=== PATIENT | female | born 1975 | race American Indian/Alaskan Native ===

== ENCOUNTER 2016-07-10 10:54 | Day surgery (SDC) | payer OTHER ==
[~2016-07-10 10:54] MED LIST: Dexamethasone 4 MG/ML 5 ML MDV ONE; HYDROmorphone 1 MG/ML Syringe ONE; Ketorolac 30 MG/ML SDV ONE; Lactated Ringers 1,000 ML IV SCH; Lactated Ringers 1,000 ML ONE; Lidocaine 1% 2 ML SDV ONE; Lidocaine 1%/Sod Bicarbonate in NS 8.4% 1 ML Syringe IV PRN; Midazolam 1 MG/ML 2 ML SDV ONE; Ondansetron 4 MG/2 ML SDV ONE; Propofol 200 MG/20 ML SDV ONE; Rocuronium 50 MG/5 ML Vial ONE; Sodium Chloride 0.9% 10 ML Syringe FLUSH PRN; ceFAZolin 1 GM Vial ONE; fentaNYL 250 MCG/5 ML SDV ONE
--- NOTE | 2016-07-10 12:27 | PCM.PREANE ---
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: stroke/TIA (bells palsy left side) Respiratory: Reports: no symptoms Cardiovascular: Reports: no symptoms, dyspnea on exertion GI: Reports: no symptoms Other: Reports: easy bleeding - PHYSICAL ASSESSMENT HR: 98 O2 Sat by Pulse Oximetry: 97 RR: 16 BP: 134/91 Temp: 36.4 C Vital Signs: Last Vital Signs Temp 36.4 C 07/10/16 11:15 Pulse 98 07/10/16 11:15 Resp 16 07/10/16 11:15 BP 134/91 H 07/10/16 11:15 Pulse Ox 97 07/10/16 11:15 Height: 1.65 m Weight: 107.501 kg NPO Status Date: 07/09/16 NPO Status Time: 20:00 ASA Class: 2 Mental Status: alert & oriented x3 Dentition: Reports: broken tooth/teeth (front top) Thyro-Mental Finger Breadths: 3 Mouth Opening Finger Breadths: 3 ROM/Head Extension: full Respiratory Status: lungs clear to auscultation bilaterally Cardiovascular Status: regular rate & rhythm, normal S1, S2, no murmur, blood pressure WNL - LAB Values: Laboratory Last Values Urine HCG, Qual Negative (NEGATIVE) 07/10/16 11:05 MRSA (PCR) Negative 07/04/16 11:01 - ALLERGIES Allergies/Adverse Reactions: Allergies Allergy/AdvReac Type Severity Reaction Status Date / Time No Known Allergies Allergy Verified 11/26/14 21:08 - ANESTHESIA PLAN Preop Beta Chuck: No Anesthesia Type Planned: general anesthesia - ACKNOWLEDGEMENTS Pt an appropriate candidate for the planned anesthesia: Yes Alternatives and risks of anesthesia discussed w pt/guardian: Yes Pt/Guardian understands and agree with anesthesia plan: Yes PreAnesthesia Questionnaire HEENT History: Reports: Allergic rhinitis Cardiovascular History: Reports: None Respiratory History: Reports: Asthma Gastrointestinal History: Reports: GERD Genitourinary History: Reports: None 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: Musculoskeletal History: Reports: Arthritis Other Musculoskeletal History: arhtirits to left knee and knee surgery Neurological History: Reports: Migraines Psychiatric History: Reports: Addiction, Depression Endocrine/Metabolic History: Reports: None Hematologic History: Reports: Anemia Immunologic History: Reports: None Oncologic (Cancer) History: Reports: None Dermatologic History: Reports: None - Past Surgical History HEENT Surgical History: Reports: None Cardiovascular Surgical History: Reports: None Respiratory Surgical History: Reports: None GI Surgical History: Reports: Cholecystectomy Female Surgical History: Reports: section Endocrine Surgical History: Reports: None Neurological Surgical History: Reports: None Musculoskeletal Surgical History: Reports: Arthroscopic knee Other Musculoskeletal Surgeries/Procedures:: Bilateral knee videoarhtroscopy Dermatological Surgical History: Reports: None - SUBSTANCE USE Smoking Status *Q: Current Some Day Smoker Tobacco Use Within Last Twelve Months: Cigarettes Second Hand Smoke Exposure: Yes Days Per Week of Alcohol Use: 2 Number of Drinks Per Day: 6 Total Drinks Per Week: 12 Recreational Drug Use History: Yes Recreational Drug Type: Reports: Marijuana/Hashish Other Recreational Drug Type: had some last noc Recreational Drug Last Use: 1 week ago - HOME MEDS Home Medications: Home Meds Promethazine [Phenergan] 25 mg PO Q6H PRN #10 tab 11/27/14 [Rx] Aspirin 325 mg PO BID #100 tablet 07/10/16 [Rx] Hydrocodone/Acetaminophen [[place] 5-325 Tablet] 1 - 2 each PO Q6H PRN #20 tablet 07/10/16 [Rx] - CURRENT (IN HOUSE) MEDS Current Meds: Current Medications Lactated Ringer's (Ringers, Lactated) 1,000 mls @ 125 mls/hr IV ASDIRECTED MEDHAT Stop: 07/10/16 18:00 Lidocaine/Sodium Bicarbonate (Buffered Lidocaine 1% In Ns 8.4%) 0.25 ml IV ONETIME PRN PRN Reason: Prior to IV Start Stop: 07/10/16 18:00 Sodium Chloride (Saline Flush) 10 ml FLUSH ASDIRECTED PRN PRN Reason: Keep Vein Open Stop: 07/10/16 18:00 Discontinued Medications Cefazolin Sodium (Ancef) Confirm Administered Dose 2 gm .ROUTE .STK-MED ONE Stop: 07/10/16 06:28 Dexamethasone (Dexamethasone) Confirm Administered Dose 20 mg .ROUTE .STK-MED ONE Stop: 07/10/16 06:28 Fentanyl (Sublimaze) Confirm Administered Dose 250 mcg .ROUTE .STK-MED ONE Stop: 07/10/16 06:29 Hydromorphone HCl (Dilaudid) Confirm Administered Dose 1 mg .ROUTE .ST-MED ONE Stop: 07/10/16 06:28 Lactated Ringer's (Ringers, Lactated) Confirm Administered Dose 1,000 mls @ as directed .ROUTE .STPrecognate-MED ONE Stop: 07/10/16 06:28 Ketorolac Tromethamine (Toradol) Confirm Administered Dose 30 mg .ROUTE .ST- MED ONE Stop: 07/10/16 06:28 Lidocaine HCl (Lidocaine 1%) Confirm Administered Dose 6 ml .ROUTE .ST-MED ONE Stop: 07/10/16 06:28 Midazolam HCl (Versed 1 Mg/Ml) Confirm Administered Dose 2 mg .ROUTE .Precognate-MED ONE Stop: 07/10/16 06:28 Ondansetron HCl (Zofran) Confirm Administered Dose 4 mg .ROUTE .STPrecognate-MED ONE Stop: 07/10/16 06:28 Propofol (Diprivan 20 Ml) Confirm Administered Dose 200 mg .ROUTE .STPrecognate-MED ONE Stop: 07/10/16 06:28 Rocuronium [place] (Zemuron) Confirm Administered Dose 50 mg .ROUTE .Pharmaca-MED ONE Stop: 07/10/16 06:28
[2016-07-10] MEDS ORDERED: Scopolamine 1.5 MG Transdermal Patch TRDERM PRN (12:32)
[2016-07-10] MEDS ORDERED: Scopolamine 1.5 MG Transdermal Patch TOP ONE (12:32)
[2016-07-10] MEDS ORDERED: Bupivacaine 0.25% 30 ML SDV ONE (12:55)
[2016-07-10] MEDS ORDERED: EPINEPHrine 1:1000 1 MG/ML 30 ML MDV ONE (12:55)
[2016-07-10] MEDS ORDERED: Triamcinolone Acetonide 40 MG/ML 1 ML MDV ONE (12:55)
[2016-07-10] MEDS ORDERED: Succinylcholine/Normal Saline 100 MG/5 ML Syringe ONE (14:31)
[2016-07-10] MEDS ORDERED: Lidocaine 1% 2 ML SDV ONE ×3 (14:31)
[2016-07-10] MEDS ORDERED: diphenhydrAMINE 50 MG/ML SDV ONE (14:32)
[2016-07-10] MEDS ORDERED: ePHEDrine/Normal Saline 25 MG/5 ML Syringe ONE (15:26)
--- NOTE | 2016-07-10 15:40 | PCM.POSTAN ---
POST ANESTHESIA ASSESSMENT - MENTAL STATUS Mental Status: alert, oriented - VITAL SIGNS Pulse Rate: 103 SaO2: 92 Resp Rate: 20 Blood Pressure: 114/71 Temperature: 37.7 C - RESPIRATORY Respiratory Status: respiratory rate WNL, airway patent, O2 saturation stable - CARDIOVASCULAR CV Status: pulse rate WNL, blood pressure stable - GASTROINTESTINAL GI Status: no symptoms - PAIN Pain Score: 0 - POST OP HYDRATION Hydration Status: adequate & stable - OBSERVATIONS Free Text/Narrative:: no anesthesia complications noted
[2016-07-10] MEDS: fentaNYL 100 MCG/2 ML SDV IVPUSH PRN ×2 (16:10→16:20)
[2016-07-10] MEDS ORDERED: Acetaminophen/HYDROcodone 325-5 MG Tab PO ONE (17:10)
[2016-07-10 17:52] VITALS: BP 118/74
--- NOTE | 2016-07-17 08:15 | PCM.OPNOTE ---
- General Post-Op/Procedure Note Date of Surgery/Procedure: 07/10/16 Operative Procedure(s): right knee arthroscoy with partial medial meniscectomy with chondroplasty and bilateral knee steroid injections Pre Op Diagnosis: right knee medial meniscus tear with bilateral knee pain Post-Op Diagnosis: Same Anesthesia Technique: General LMA, Local Primary Surgeon: Calin Mccall Anesthesia Provider: Yazan Ji Build Engineer: Iraida Person in mLs: 5 Complications: None Condition: Good
--- NOTE | 2016-07-17 09:29 | OR ---
DATE OF OPERATION: 07/10/2016 SURGEON: Calin Mccall MD OPERATION PERFORMED: Right knee arthroscopy with partial medial meniscectomy with chondroplasty medial femoral condyle, and bilateral knee steroid injection. 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 ANESTHESIA: General LMA with local. ANESTHESIA PROVIDER: Yazan Ji CRNA. EXTRACTOR AND WRINGER OPERATOR: Iraida Person PA-C ESTIMATED BLOOD LOSS: Less than 5 mL. COMPLICATIONS: None. CONDITION: Stable. DESCRIPTION OF PROCEDURE: The patient was identified in the preop holding area. Proper site was marked and identified by the surgeon. The patient was taken back to the OR after adequate anesthesia, the patient's left lower extremity was placed in a well leg king. Right lower extremity was placed in a C-clamp king after a nonsterile tourniquet was applied. Right lower extremity was then sterilely prepped and draped in usual sterile fashion. OR time-out was performed. The patient received 2 g IV Ancef. Right lower extremity was then exsanguinated. Tourniquet was then insufflated to 300 mmHg. Standard anterolateral portal was created. Scope trocar was introduced. There was noted to be grade-1/2 chondromalacia of the patella. No loose foreign bodies noted in the medial lateral gutter. Attention was turned to the medial compartment anterior medial portal was created. The probe was introduced. There was found to be a posterior medial meniscus tear degenerative in nature that was irreparable. At this time, a partial medial meniscectomy of the posterior 3rd was done, back to a stable rim. At this time, the patient also had a chondroplasty of the medial femoral condyle which had grade 2/3 chondromalacia. ACL was found to be partially torn in the notch. Lateral compartment showed no signs of chondromalacia or meniscus tear. At this time, excess saline was drained from the knee. Steroid injection was then completed to the right knee and left knee and then had a steroid injection after the dressing was put on the right knee. The patient tolerated the procedure well and was sent to PACU in a stable condition. MMODAL /[id number] GODFREY
== END 2016-07-10 17:45 | disposition home or self-care (01) ==
LOC: JD.SDS 10:54
PROVIDERS: ATTEND Orthopaedic Surgery
DX: M23.221 Derangement of posterior horn of medial meniscus due to old tear or injury, right knee (principal); M94.261 Chondromalacia, right knee; J45.909 Unspecified asthma, uncomplicated; K21.9 Gastro-esophageal reflux disease without esophagitis; F10.10 Alcohol abuse, uncomplicated; J30.81 Allergic rhinitis due to animal (cat) (dog) hair and dander; Z98.890 Other specified postprocedural states; Z78.9 Other specified health status; F17.210 Nicotine dependence, cigarettes, uncomplicated; F19.90 Other psychoactive substance use, unspecified, uncomplicated; F32.9 Major depressive disorder, single episode, unspecified
CPT/HCPCS: 20610; 29881; 81025; 87641; A9270; J0171; J0690; J1100; J1170; J2250; J2405; J3010; J3301; J7050; J7120; 01400; J0330; J1200; J1885; J2704; J3490

== ENCOUNTER 2019-01-26 14:51 | Emergency (ER) | payer OTHER ==
[2019-01-26 15:16] VITALS: BP 136/86; PULSE 93
[2019-01-26] MEDS ORDERED: HYDROmorphone 0.5 MG/0.5 ML Syringe IVPUSH ONE (15:39)
[2019-01-26] MEDS ORDERED: Ondansetron 4 MG/2 ML SDV IVPUSH ONE (15:39)
[2019-01-26] MEDS ORDERED: Sodium Chloride 0.9% 1,000 ML IV SCH (15:45)
[2019-01-26] MEDS: Sodium Chloride 0.9% 10 ML Syringe FLUSH PRN ×2 (16:31→18:07)
[2019-01-26] MEDS ORDERED: Diatrizoate Meglumine/Diatrizoate Sodium 37% 120 ML Bottle PO ONE (16:49)
[2019-01-26] MEDS ORDERED: Iopamidol 612 MG/ML 100 ML Bottle IVPUSH ONE (16:49)
[2019-01-26] MEDS ORDERED: Metoclopramide 10 MG/2 ML SDV IVPUSH ONE (18:29)
--- NOTE | 2019-01-26 18:59 | CT ---
CT abdomen and pelvis Technique: Multiple axial sections were obtained from above the dome of the diaphragm inferiorly through the pubic symphysis. Intravenous and oral contrast has been given. Delayed images were obtained through the bladder. Comparison: No prior CT abdomen or pelvis exam is available. Findings: Visualized portions of both lung bases show nothing acute. Liver contains no focal abnormality. Spleen appears within normal limits. Adrenal glands show no nodule. Surgical clips are seen from prior cholecystectomy. Pancreas is within normal limits. Kidneys show symmetric contrast enhancement without hydronephrosis or mass. Several small nonobstructing calculi are seen within both kidneys. Delayed images shows contrast within the distal ureters and bladder with no evidence of ureteral obstruction. Aorta shows no aneurysm. No retroperitoneal adenopathy is seen. No mesenteric abnormalities are seen. Appendix is seen which is normal in size. No pelvic mass or adenopathy is seen. No free fluid or inflammatory change is seen within the abdomen or pelvis. Bone window settings were reviewed which shows no acute osseous finding. Impression: 1. Findings as noted above. Nothing acute is identified. Diagnostic code #2
--- NOTE | 2019-01-26 19:11 | EDM.PDOC ---
ED HPI GENERAL MEDICAL PROBLEM - General Chief Complaint: Abdominal Pain Stated Complaint: RIGHT SIDE PAIN Time Seen by Provider: 01/26/19 15:06 Source of Information: Reports: Patient, RN Notes Reviewed - History of Present Illness INITIAL COMMENTS - FREE TEXT/NARRATIVE: 43-year-old female has been sent here from [facility] clinic for evaluation of abdominal pain. This started about 4 days ago. The pain has been worsening over the past couple of days. There has been some nausea and vomiting and also frequent diarrhea. Pain has been localizing to the right lower abdomen over the past 1-2 days. She does have history of prior cholecystectomy but still does have her appendix. No definite fever. She's had no appetite, there has been difficulty eating for the last 2 or 3 days. Treatments MANAGER CLIENT SUPPORT: Reports: Other (see below) Other Treatments MANAGER CLIENT SUPPORT: motrin 800 mg; amoxicillin for tooth Right Lower Abdomen Pain Score (Numeric/FACES): 7 - Related Data Allergies Allergy/AdvReac Type Severity Reaction Status Date / Time naproxen Allergy Swelling Verified 01/26/19 15:06 Home Meds: Home Meds Albuterol Sulfate [Proventil Hfa] 2 puff INH Q4H PRN 01/26/19 [History] Amoxicillin 500 mg PO BID 01/26/19 [History] Cholecalciferol (Vitamin D3) [Vitamin D3] 5,000 unit PO DAILY 01/26/19 [History] Ciprofloxacin HCl [Cipro] 500 mg PO BID #7 tablet 01/26/19 [Rx] Cyanocobalamin (Vitamin B-12) [Vitamin B-12] 1,000 mcg PO DAILY 01/26/19 [ History] Escitalopram [Lexapro] 20 mg PO DAILY 01/26/19 [History] Fluconazole 150 mg PO DAILY 01/26/19 [History] Fluticasone Propionate [Flonase Allergy Relief] 1 spray INH DAILY 01/26/19 [ History] Ibuprofen [Motrin] 800 mg PO Q6H PRN 01/26/19 [History] Ondansetron [Zofran ODT] 4 mg PO Q8HR PRN #7 tab.dis 01/26/19 [Rx] Permethrin [Elimite] 1 applic TOP ASDIRECTED 01/26/19 [History] Ranitidine [Zantac] 150 mg PO BID 01/26/19 [History] Past Medical History HEENT History: Reports: Allergic Rhinitis Cardiovascular History: Reports: None Respiratory History: Reports: Asthma Gastrointestinal History: Reports: GERD Genitourinary History: Reports: None PRACTICE ASSISTANT History: Reports: Musculoskeletal History: Reports: Arthritis Other Musculoskeletal History: arhtirits to left knee and knee surgery Neurological History: Reports: Migraines Psychiatric History: Reports: Addiction, Depression Endocrine/Metabolic History: Reports: None Hematologic History: Reports: Anemia Immunologic History: Reports: None Oncologic (Cancer) History: Reports: None Dermatologic History: Reports: None - Past Surgical History Cardiovascular Surgical History: Reports: None Respiratory Surgical History: Reports: None GI Surgical History: Reports: Cholecystectomy Female Surgical History: Reports: Section Endocrine Surgical History: Reports: None Neurological Surgical History: Reports: None Musculoskeletal Surgical History: Reports: Arthroscopic Knee Dermatological Surgical History: Reports: None Social & Family History - Tobacco Use Smoking Status *Q: Current Every Day Smoker Years of Tobacco use: 25 Packs/Tins Daily: 0.1 - Caffeine Use Caffeine Use: Reports: Tea - Recreational Drug Use Recreational Drug Type: Reports: Marijuana/Hashish ED ROS GENERAL - Review of Systems Review Of Systems: See Below Constitutional: Reports: Chills. Denies: Fever HEENT: Reports: No Symptoms Respiratory: Denies: Shortness of Breath Cardiovascular: Denies: Chest Pain GI/Abdominal: Reports: Abdominal Pain, Diarrhea (Patient is also at frequent watery diarrhea for the past 4 days), Nausea, Vomiting ED EXAM, GI/ABD - Physical Exam Exam: See Below General Appearance: Alert, Mild Distress Eyes: Bilateral: Normal Appearance Throat/Mouth: Normal Inspection, Normal Oropharynx Head: Atraumatic Neck: Supple Respiratory/Chest: No Respiratory Distress, Lungs Clear, Normal Breath Sounds Cardiovascular: Regular Rate, Rhythm GI/Abdominal Exam: Rebound (mild), Tender (mild diffuse tendernes, more severe moderate tenderness RLQ). No: Guarding Extremities: Normal Inspection, Normal Range of Motion Neurological: Alert, Oriented, No Motor/Sensory Deficits Skin Exam: Warm, Dry, Normal Color Course - Vital Signs Last Recorded V/S: Last Vital Signs Temp 97.9 F 01/26/19 15:13 Pulse 93 01/26/19 15:13 Resp 20 01/26/19 15:13 BP 136/86 01/26/19 15:13 Pulse Ox 98 01/26/19 15:13 - Orders/Labs/Meds Orders: Active Orders 24 hr Category Date Time Status Peripheral IV Care [RC] . DIRECTED Care 01/26/19 15:31 Active Peripheral IV Insertion Adult [OM.PC] Stat Oth 01/26/19 15:30 Ordered Labs: Laboratory Tests 01/26/19 01/26/19 01/26/19 Range/Units 15:45 15:45 15:45 WBC 8.19 (3.98-10.04) K/mm3 RBC 4.73 (3.98-5.22) M/mm3 Hgb 14.8 (11.2-15.7) gm/dl Hct 44.4 (34.1-44.9) % MCV 93.9 (79.4-94.8) fl MCH 31.3 (25.6-32.2) pg MCHC 33.3 (32.2-35.5) g/dl RDW Std Deviation 45.0 (36.4-46.3) fL Plt Count 328 (182-369) K/mm3 MPV 8.5 L (9.4-12.3) fl Neutrophils % (Manual) 75 H (40-60) % Band Neutrophils % 1 (0-10) % Lymphocytes % (Manual) 18 L (20-40) % Atypical Lymphs % 0 % Monocytes % (Manual) 6 (2-10) % Eosinophils % (Manual) 0 L (0.7-5.8) % Basophils % (Manual) 0 L (0.1-1.2) Platelet Estimate Adequate RBC Morph Comment Normal C-Reactive Protein 1.5 H* (<1.0) mg/dL HCG, Qual Negative (NEGATIVE) Meds: Medications Discontinued Medications Generic Name Dose Route Start Last Admin Trade Name Freq PRN Reason Stop Dose Admin Diatrizoate Meglum/Diatrizoate Sod 60 ml 01/26/19 16:49 01/26/19 18:07 Gastrografin 37% PO 01/26/19 16:50 60 ml ONETIME ONE Administration Hydromorphone HCl 0.5 mg 01/26/19 15:39 01/26/19 16:21 Dilaudid IVPUSH 01/26/19 15:40 0.5 mg ONETIME ONE Administration Sodium Chloride 1,000 mls @ 999 mls/hr 01/26/19 15:45 01/26/19 16:25 Normal Saline IV 999 mls/hr ONETIME MEDHAT Administration Iopamidol 100 ml 01/26/19 16:49 01/26/19 18:07 Isovue-300 (61%) IVPUSH 01/26/19 16:50 100 ml ONETIME ONE Administration Metoclopramide HCl 5 mg 01/26/19 18:29 01/26/19 18:36 Reglan IVPUSH 01/26/19 18:30 5 mg ONETIME ONE Administration Ondansetron HCl 4 mg 01/26/19 15:39 01/26/19 16:19 Zofran IVPUSH 01/26/19 15:40 4 mg ONETIME ONE Administration Sodium Chloride 10 ml 01/26/19 15:30 01/26/19 18:07 Saline Flush FLUSH 10 ml ASDIRECTED PRN Administration Keep Vein Open - Re-Assessments/Exams Free Text/Narrative Re-Assessment/Exam: 01/26/19 19:10 White blood count came back at 8190, C-reactive protein 1.5. Abdominal CT was ordered right after exam due to patient's severity, longevity and progression of symptoms. CT results are now back and does not show acute intra-abdominal pathology. Appendix was seen, reported to be normal size with no surrounding inflammatory change. See radiology report for details. She does feel better after IV meds given. Discharge instr. as documented. Departure - Departure Time of Disposition: 19:19 Disposition: Home, Self-Care 01 Condition: Fair Clinical Impression: Abdominal pain, Diarrhea, Vomiting - Discharge Information Prescriptions: Ondansetron [Zofran ODT] 4 mg PO Q8HR PRN #7 tab.dis PRN Reason: Nausea/Vomiting Ciprofloxacin HCl [Cipro] 500 mg PO BID #7 tablet Instructions: Abdominal Pain, Adult, [id number] Referrals: PCP,None [Primary Care Provider] - Forms: ED Department Discharge Additional Instructions: Clear liquids until tomorrow afternoon, then very careful bland diet as tolerated, Cipro 500 mg twice daily for 3-4 days until gone, Zofran Q8 to 12 hours if needed for further nausea or vomiting. Follow-up clinic if not much better within 2-3 days as expected, return to ED as needed if symptoms worsening in any way - My Orders Last 24 Hours: My Active Orders 01/26/19 15:30 Peripheral IV Insertion Adult [OM.PC] Stat 01/26/19 15:31 Peripheral IV Care [RC] . DIRECTED - Assessment/Plan Last 24 Hours: My Active Orders 01/26/19 15:30 Peripheral IV Insertion Adult [OM.PC] Stat 01/26/19 15:31 Peripheral IV Care [RC] . DIRECTED
== END 2019-01-26 19:33 | disposition home or self-care (01) ==
LOC: JD.ED 14:51
DX: R10.31 Right lower quadrant pain (principal); R19.7 Diarrhea, unspecified; R11.2 Nausea with vomiting, unspecified; J45.909 Unspecified asthma, uncomplicated; K21.9 Gastro-esophageal reflux disease without esophagitis; F32.9 Major depressive disorder, single episode, unspecified; F17.210 Nicotine dependence, cigarettes, uncomplicated; Z88.8 Allergy status to other drugs, medicaments and biological substances; Z79.899 Other long term (current) drug therapy
CPT/HCPCS: 36415; 74177; 84703; 85007; 85027; 86140; 96361; 96374; 96375; 99284; J1170; J2405; J2765; J7040; Q9963; Q9967